=== PATIENT | female | born 1980 | race Caucasian/White ===

== ENCOUNTER 2017-12-17 00:57 | Emergency (ER) | payer OTHER ==
[~2017-12-17] VITALS: Ht 162.6 cm; Wt 68.0 kg
[~2017-12-17 00:57] MED LIST: BACTRIM DS TAB1 EACH PO; CELEBREX; CIPROFLOXACIN500 M1 PO; DOXYCYCLINE 10100 MG PO; ERYTHROMYCIN E3.5 G2 OP; NORCO 5-325 TA1 EACH PO; PERCOCET 5-3251 EACH PO; PYRIDIUM200 MG PO; TRINATE TABLET1 TAB; ZOLOFT
== END 2017-12-17 01:27 | disposition home or self-care (01) ==
LOC: M.ERS 00:57
DX: H57.8 Other specified disorders of eye and adnexa (principal); F17.210 Nicotine dependence, cigarettes, uncomplicated; F31.9 Bipolar disorder, unspecified; Z88.5 Allergy status to narcotic agent; Z88.8 Allergy status to other drugs, medicaments and biological substances